=== PATIENT | female | born 1970 | race African-American/Black ===

== ENCOUNTER 2020-04-09 06:40 | Day surgery (SDC) | payer OTHER, SELFPAY ==
[~2020-04-09] VITALS: Ht 165.1 cm; Wt 81.6 kg
[2020-04-09] MEDS ORDERED: fentaNYL citrate 0.05 MG/ML VIAL ONE (08:31)
[2020-04-09] MEDS ORDERED: MIDAZOLAM 2 MG/2 ML VIAL ONE ×2 (08:31→08:32)
[2020-04-09] MEDS ORDERED: MIDAZOLAM 2 MG/2 ML VIAL IVP ONE (12:15)
== END 2020-04-09 11:55 | disposition home or self-care (01) ==
LOC: MDS 06:40 → MMU 06:40 → MDS 11:55
PROVIDERS: ATTEND Internal Medicine Gastroenterology
DX: R10.13 Epigastric pain (principal); K29.70 Gastritis, unspecified, without bleeding; K76.0 Fatty (change of) liver, not elsewhere classified; E66.3 Overweight; I10 Essential (primary) hypertension; Z87.891 Personal history of nicotine dependence; Z88.8 Allergy status to other drugs, medicaments and biological substances; Z79.899 Other long term (current) drug therapy; Z68.29 Body mass index [BMI] 29.0-29.9, adult; Z20.828 Contact with and (suspected) exposure to other viral communicable diseases
CPT/HCPCS: 36415; 43239; 81025; 86677; J2250; U0003; J3010